=== PATIENT | female | born 1985 | race Caucasian/White ===

== ENCOUNTER → 2018-02-23 | Outpatient (CLI) | payer OTHER ==
--- NOTE | 2018-02-23 16:22 | KCIC ---
EXAM: Chest, 2 views. HISTORY: Positive tuberculin skin test. COMPARISON: None. FINDINGS: 2 views of the chest are obtained. There is no infiltrate, pleural effusion or pneumothorax. The heart is normal in size. IMPRESSION: No acute finding or evidence of pulmonary tuberculosis. Electronically signed by: Spring Givens MD (02/23/2018 4:18 PM) [id number]
== END | disposition home or self-care (01) ==
LOC: KCIC 15:22
PROVIDERS: ATTEND Nurse Practitioner Family
DX: Z11.1 Encounter for screening for respiratory tuberculosis (principal); R76.11 Nonspecific reaction to tuberculin skin test without active tuberculosis
CPT/HCPCS: 71046